=== PATIENT | male | born 1935 | race Caucasian/White ===

== ENCOUNTER → 2017-02-04 | Outpatient (CLI) | payer MEDICARE, MEDICAID ==
[~2017-02-04] MED LIST: ACET-2161 PO; AMLO5TAB2 PO; ASPI325T PO; CLOP75TA PO; DOCU-168 PO; DOXA8TAB82 PO; LISI-621 PO; MAGN400O4 PO; MULT1TAB69 PO; SIMV20TA6 PO
[2017-02-04 06:19] LABS: ALBUMIN 3.5 G/DL (3.5-5.0); ALBUMIN/GLOBULIN RATIO 1.1 RATIO (1.1-2.2); ALKALINE PHOSPHATASE 112 U/L (38-126); ALT (SGPT) 25 U/L (21-72); ANION GAP 12 MEQ/L (5-15); AST (SGOT) 21 U/L (17-59); BUN/CREATININE RATIO 13 RATIO (6-26); CHLORIDE 107 MEQ/L (98-107); CO2 - CARBON DIOXIDE 26 MEQ/L (22-30); CREATININE 1.6 MG/DL (0.8-1.5); GLOMERULAR FILTRATION RATE 42; GLUCOSE 88 MG/DL (75-110); POTASSIUM 4.1 MEQ/L (3.6-5); SODIUM 145 MEQ/L (134-144); TOTAL PROTEIN 6.6 G/DL (6.3-8.2)
== END ==
LOC: LABNH.BH 00:27
PROVIDERS: ATTEND Family Medicine
DX: I10 Essential (primary) hypertension (principal); G81.94 Hemiplegia, unspecified affecting left nondominant side; I63.00 Cerebral infarction due to thrombosis of unspecified precerebral artery
CPT/HCPCS: 36415; 80053; P9604